=== PATIENT | female | born 1950 | race Caucasian/White ===

== ENCOUNTER 2024-05-22 12:02 | Inpatient (IN) | payer MEDICARE, MEDICAID ==
[2024-05-22 12:27] LABS: BASOPHILS ABSOLUTE AUTO 0.04 K/uL (0.00-0.20); BASOPHILS PERCENT AUTO 0.4 % (0.0-2.0); EOSINOPHILS ABSOLUTE AUTO 0.39 K/uL (0.00-0.50); EOSINOPHILS PERCENT AUTO 3.6 % (0.0-5.0); HEMATOCRIT 35.1 % (34.0-46.0); HEMOGLOBIN 10.3 g/dL (11.7-15.5); IMMATURE GRAN ABSOLUTE AUTO 0.02 10^3/uL (0.00-0.04); IMMATURE GRAN PERCENT AUTO 0.2 % (0.0-0.4); LYMPHOCYTES ABSOLUTE AUTO 1.24 K/uL (0.50-3.50); LYMPHOCYTES PERCENT AUTO 11.6 % (10.0-50.0); MEAN CORPUSCULAR HEMOGLOBIN 32.1 pg (28.2-33.3); MEAN CORPUSCULAR HGB CONC 29.3 g/dL (31.7-36.0); MEAN CORPUSCULAR VOLUME 109.3 fL (84.0-98.0); MONOCYTES ABSOLUTE AUTO 0.46 K/uL (0.00-1.00); MONOCYTES PERCENT AUTO 4.3 % (2.0-14.0); NEUTROPHILS ABSOLUTE AUTO 8.55 K/uL (1.40-7.00); NEUTROPHILS PERCENT AUTO 79.9 % (45.0-80.0); PLATELET COUNT,PLT 137 K/uL (150-350); RED BLOOD CELL COUNT 3.21 M/uL (3.77-5.09); RED CELL DISTRIBUTION WIDTH 19.1 % (11.2-14.1); WHITE BLOOD CELL COUNT,WBC 10.7 K/uL (4.0-10.2)
[2024-05-22 12:56] LABS: BLOOD UREA NITROGEN,BUN 29 mg/dL (7-18); CALCIUM 8.2 mg/dL (8.5-10.1); CARBON DIOXIDE,CO2 32.1 mmol/L (21.0-32.0); CREATININE 1.46 mg/dL (0.51-1.17); GLUCOSE RANDOM 115 mg/dL (70-99); MAGNESIUM 2.5 mg/dL (1.8-2.4); POTASSIUM,K 3.2 mmol/L (3.5-5.1); PRO B-TYPE NATRIUR PEPT,BNPPRO 7454 pg/mL (0-125); TSH ULTRASENSITIVE 1.556 mIU/mL (0.358-3.740)
[2024-05-22 13:00] LABS: ANION GAP 10.1 meq/L (7-15); ESTIMATED GFR 37 mL/min (>=60)
[2024-05-22 13:01] LABS: INR 1.6 (0.9-1.1); PROTHROMBIN TIME 15.6 SEC (9.0-11.1)
[2024-05-22 13:07] LABS: APPEARANCE,URINE SLIGHTLY CLOUDY; BILIRUBIN,URINE SMALL (NEGATIVE); COLOR,URINE DARK YELLOW; GLUCOSE,URINE NEGATIVE (NEGATIVE); KETONES,URINE TRACE mg/dL (NEGATIVE); LEUKOCYTE ESTERASE,URINE LARGE (NEGATIVE); NITRITE,URINE NEGATIVE (NEGATIVE); OCCULT BLOOD,URINE MODERATE (NEGATIVE); PH,URINE 5.5 (5.0-9.0); PROTEIN,URINE 30 mg/dL (NEGATIVE); SODIUM,NA 165 mmol/L (136-145); UROBILINOGEN,URINE 0.2 E.U./dL (0.2-1.0)
[2024-05-22 13:08] LABS: CHLORIDE,CL 126 mmol/L (98-107)
[2024-05-22 13:24] LABS: BACTERIA,URINE FEW /HPF (NONE TO FEW); YEAST,URINE MANY /HPF (NEGATIVE)
[2024-05-22] MEDS: Lactated Ringers 1,000 ML IV SCH (13:27)
[2024-05-22 14:02] LABS: LACTIC ACID 0.6 mmol/L (0.4-2.0)
[2024-05-22 16:14] LABS: SODIUM,NA 165 mmol/L (136-145)
[2024-05-22] MEDS ORDERED: Bisacodyl 5 MG Tab PO PRN (17:55)
[2024-05-22] MEDS ORDERED: DEXTROMETHORPHAN HBR PO PRN (17:55)
[2024-05-22] MEDS ORDERED: guaiFENesin/Dextromethorphan 100-10 MG/5 ML Soln 10 ML Cup PO PRN (18:15)
[2024-05-22] MEDS: Ampicillin/Sulbactam Na 3 GM in Sodium Chloride 0.9% 100 ML IV ONE (18:22)
[2024-05-22] MEDS: Apixaban 5 MG Tab PO ONE (18:24)
[2024-05-22] MEDS: Acetaminophen 650 MG Tab.ER PO SCH (18:28)
[2024-05-22] MEDS: Gabapentin 100 MG Cap PO SCH (18:29)
[2024-05-22] MEDS: AMINO ACIDS PO SCH (18:29)
[2024-05-22] MEDS: PROTEIN HYDROLYS PO SCH (18:29)
[2024-05-22] MEDS: Sennosides/Docusate Sodium 50-8.6 MG Tab PO SCH (18:33)
[2024-05-22] MEDS: Orphenadrine 100 MG Tab.ER PO SCH (18:33)
[2024-05-22 19:17] LABS: BLOOD UREA NITROGEN,BUN 28 mg/dL (7-18); CALCIUM 8.3 mg/dL (8.5-10.1); CARBON DIOXIDE,CO2 31.5 mmol/L (21.0-32.0); CREATININE 1.42 mg/dL (0.51-1.17); GLUCOSE RANDOM 111 mg/dL (70-99); POTASSIUM,K 3.5 mmol/L (3.5-5.1); PRO B-TYPE NATRIUR PEPT,BNPPRO 6342 pg/mL (0-125)
[2024-05-22 19:19] LABS: CHLORIDE,CL 124 mmol/L (98-107); ESTIMATED GFR 39 mL/min (>=60); SODIUM,NA 163 mmol/L (136-145)
[2024-05-22] MEDS: Melatonin 3 MG Tab PO SCH (19:49)
[2024-05-22] MEDS: atorvaSTATin 40 MG Tab PO SCH (19:49)
[2024-05-22] MEDS: amLODIPine 5 MG Tab PO SCH (19:50)
[2024-05-22] MEDS: Non-Formulary Medication 1 Each (Oxycodone Hcl [Oxycodone Hcl] 5 MG Capsule) PO SCH (20:10)
[2024-05-22] MEDS: LORazepam 2 MG/ML SDV IVPUSH ONE (22:15)
[2024-05-22 22:16] LABS: BLOOD UREA NITROGEN,BUN 27 mg/dL (7-18); CALCIUM 7.9 mg/dL (8.5-10.1); CARBON DIOXIDE,CO2 31.4 mmol/L (21.0-32.0); CREATININE 1.42 mg/dL (0.51-1.17); GLUCOSE RANDOM 112 mg/dL (70-99); POTASSIUM,K 3.3 mmol/L (3.5-5.1)
[2024-05-22 22:21] LABS: ANION GAP 8.9 meq/L (7-15); CHLORIDE,CL 123 mmol/L (98-107); ESTIMATED GFR 39 mL/min (>=60); SODIUM,NA 160 mmol/L (136-145)
[2024-05-22] MEDS: Potassium Chloride Riders 10 MEQ in Premix Bag 1 BAG IV ONE (23:12)
[2024-05-23] MEDS: Lactated Ringers 1,000 ML IV SCH ×2 (00:41→09:10)
[2024-05-23 00:53] LABS: BLOOD UREA NITROGEN,BUN 27 mg/dL (7-18); CALCIUM 7.8 mg/dL (8.5-10.1); CARBON DIOXIDE,CO2 32.3 mmol/L (21.0-32.0); CREATININE 1.41 mg/dL (0.51-1.17); GLUCOSE RANDOM 113 mg/dL (70-99); POTASSIUM,K 3.5 mmol/L (3.5-5.1)
[2024-05-23 01:16] LABS: ANION GAP 9.2 meq/L (7-15); CHLORIDE,CL 124 mmol/L (98-107); ESTIMATED GFR 39 mL/min (>=60); SODIUM,NA 162 mmol/L (136-145)
[2024-05-23] MEDS: Ampicillin/Sulbactam 3 GM Vial IV SCH (02:09)
[2024-05-23 03:47] LABS: BLOOD UREA NITROGEN,BUN 27 mg/dL (7-18); CALCIUM 7.7 mg/dL (8.5-10.1); CARBON DIOXIDE,CO2 32.2 mmol/L (21.0-32.0); CREATININE 1.32 mg/dL (0.51-1.17); GLUCOSE RANDOM 104 mg/dL (70-99); POTASSIUM,K 3.2 mmol/L (3.5-5.1)
[2024-05-23 03:48] LABS: CHLORIDE,CL 122 mmol/L (98-107); ESTIMATED GFR 42 mL/min (>=60); SODIUM,NA 159 mmol/L (136-145)
[2024-05-23] MEDS: Potassium Chloride Riders 10 MEQ in Premix Bag 1 BAG IV ONE (04:27)
[2024-05-23 07:41] LABS: BASOPHILS ABSOLUTE AUTO 0.04 K/uL (0.00-0.20); BASOPHILS PERCENT AUTO 0.3 % (0.0-2.0); EOSINOPHILS ABSOLUTE AUTO 0.23 K/uL (0.00-0.50); EOSINOPHILS PERCENT AUTO 1.8 % (0.0-5.0); HEMATOCRIT 32.5 % (34.0-46.0); HEMOGLOBIN 9.6 g/dL (11.7-15.5); IMMATURE GRAN ABSOLUTE AUTO 0.02 10^3/uL (0.00-0.04); IMMATURE GRAN PERCENT AUTO 0.2 % (0.0-0.4); LYMPHOCYTES ABSOLUTE AUTO 1.07 K/uL (0.50-3.50); LYMPHOCYTES PERCENT AUTO 8.5 % (10.0-50.0); MEAN CORPUSCULAR HEMOGLOBIN 32.2 pg (28.2-33.3); MEAN CORPUSCULAR HGB CONC 29.5 g/dL (31.7-36.0); MEAN CORPUSCULAR VOLUME 109.1 fL (84.0-98.0); MONOCYTES ABSOLUTE AUTO 0.68 K/uL (0.00-1.00); MONOCYTES PERCENT AUTO 5.4 % (2.0-14.0); NEUTROPHILS PERCENT AUTO 83.8 % (45.0-80.0); PLATELET COUNT,PLT 129 K/uL (150-350); RED BLOOD CELL COUNT 2.98 M/uL (3.77-5.09); RED CELL DISTRIBUTION WIDTH 19.1 % (11.2-14.1); WHITE BLOOD CELL COUNT,WBC 12.6 K/uL (4.0-10.2)
[2024-05-23] MEDS ORDERED: PROTEIN HYDROLYS PO SCH (08:00)
[2024-05-23] MEDS ORDERED: AMINO ACIDS PO SCH (08:00)
[2024-05-23 08:13] LABS: BLOOD UREA NITROGEN,BUN 26 mg/dL (7-18); CALCIUM 7.9 mg/dL (8.5-10.1); CARBON DIOXIDE,CO2 33.8 mmol/L (21.0-32.0); CREATININE 1.38 mg/dL (0.51-1.17); GLUCOSE RANDOM 93 mg/dL (70-99); POTASSIUM,K 3.6 mmol/L (3.5-5.1); PRO B-TYPE NATRIUR PEPT,BNPPRO 7101 pg/mL (0-125)
[2024-05-23 08:15] LABS: ANION GAP 7.8 meq/L (7-15); CHLORIDE,CL 124 mmol/L (98-107); ESTIMATED GFR 40 mL/min (>=60); SODIUM,NA 162 mmol/L (136-145)
[2024-05-23] MEDS ORDERED: Cholecalciferol (Vitamin D3) 25 MCG Tab PO SCH (10:00)
[2024-05-23] MEDS ORDERED: Sertraline 50 MG Tab PO SCH (10:00)
[2024-05-23] MEDS ORDERED: Metoprolol Succinate 50 MG Tab.ER PO SCH (10:00)
[2024-05-23] MEDS ORDERED: Apixaban 5 MG Tab PO SCH (10:00)
[2024-05-23] MEDS ORDERED: Multivitamin Tab PO SCH (10:00)
[2024-05-23] MEDS ORDERED: Isosorbide Mononitrate 30 MG Tab.ER PO SCH (10:00)
[2024-05-23] MEDS ORDERED: Famotidine 20 MG Tab PO SCH (10:00)
[2024-05-23] MEDS ORDERED: Sertraline 25 MG Tab PO SCH (10:00)
[2024-05-23] MEDS: Amiodarone 200 MG Tab PO SCH (11:26)
[2024-05-23] MEDS ORDERED: Dextrose 5%-0.45% NaCl 1,000 ML IV SCH (11:45)
[2024-05-23] MEDS ORDERED: Nirmatrelvir/Ritonavir 300 MG/100 MG Dosepak PO SCH (11:45)
[2024-05-23] MEDS ORDERED: [UNRECOGNIZED DRUG - OTHER] PO SCH ×2 (12:00)
[2024-05-23] MEDS ORDERED: VIT B COMP PO SCH ×2 (12:00)
[2024-05-23] MEDS ORDERED: VITE PO SCH ×2 (12:00)
[2024-05-23] MEDS: D5 1/2 NS w/ 20 mEq/L KCl 1,000 ML IV SCH (12:16)
[2024-05-23] MEDS: Enoxaparin 40 MG/0.4 ML Syringe SUBCUT SCH (14:54)
[2024-05-23] MEDS: oxyCODONE 5 MG Tab PO SCH ×2 (14:56→15:35)
[2024-05-23] MEDS: Magnesium Oxide 400 MG Tab PO SCH (15:35)
[2024-05-23] MEDS: Cetirizine 10 MG Tab PO SCH (15:36)
[2024-05-23] MEDS: Furosemide 40 MG/4 ML VIAL IVPUSH ONE (21:10)
[2024-05-24] MEDS: Ampicillin/Sulbactam Na 3 GM in Sodium Chloride 0.9% 100 ML IV SCH (02:02)
[2024-05-24 07:33] LABS: BASOPHILS ABSOLUTE AUTO 0.03 K/uL (0.00-0.20); BASOPHILS PERCENT AUTO 0.3 % (0.0-2.0); EOSINOPHILS ABSOLUTE AUTO 0.43 K/uL (0.00-0.50); EOSINOPHILS PERCENT AUTO 4.9 % (0.0-5.0); HEMATOCRIT 29.1 % (34.0-46.0); HEMOGLOBIN 8.7 g/dL (11.7-15.5); IMMATURE GRAN ABSOLUTE AUTO 0.04 10^3/uL (0.00-0.04); IMMATURE GRAN PERCENT AUTO 0.5 % (0.0-0.4); LYMPHOCYTES ABSOLUTE AUTO 1.03 K/uL (0.50-3.50); LYMPHOCYTES PERCENT AUTO 11.7 % (10.0-50.0); MEAN CORPUSCULAR HEMOGLOBIN 32.3 pg (28.2-33.3); MEAN CORPUSCULAR HGB CONC 29.9 g/dL (31.7-36.0); MEAN CORPUSCULAR VOLUME 108.2 fL (84.0-98.0); MONOCYTES PERCENT AUTO 5.7 % (2.0-14.0); NEUTROPHILS PERCENT AUTO 76.9 % (45.0-80.0); PLATELET COUNT,PLT 125 K/uL (150-350); RED BLOOD CELL COUNT 2.69 M/uL (3.77-5.09); RED CELL DISTRIBUTION WIDTH 19.1 % (11.2-14.1); WHITE BLOOD CELL COUNT,WBC 8.8 K/uL (4.0-10.2)
[2024-05-24 07:47] LABS: CALCIUM 7.7 mg/dL (8.5-10.1); CREATININE 1.49 mg/dL (0.51-1.17); EST CRCL DRUG DOSING (CG) 29.35 mL/min; POTASSIUM,K 3.1 mmol/L (3.5-5.1)
[2024-05-24 08:13] LABS: ANION GAP 8.1 meq/L (7-15)
[2024-05-24] MEDS: Loperamide 2 MG Tab PO ONE (09:48)
[2024-05-24] MEDS: Sodium Chloride 0.9% 10 ML Syringe FLUSH PRN (13:53)
[2024-05-24] MEDS: Potassium Chloride 10 MEQ Tab.ER PO ONE (18:39)
[2024-05-24] MEDS ORDERED: Loperamide 2 MG Tab PO PRN (21:03)
== END 2024-05-25 12:30 | DRG 640 ==
LOC: LL.ED 12:02 → SUPCPDRO 12:02 → UNDOADMIN 17:05 → LL.MS 17:05 → UNDODISIN 05-25 12:30
PROVIDERS: ADMIT Physician Assistant; ATTEND Physician Assistant
DX: J96.00 Acute respiratory failure, unspecified whether with hypoxia or hypercapnia (principal); E87.0 Hyperosmolality and hypernatremia; J96.01 Acute respiratory failure with hypoxia; L89.154 Pressure ulcer of sacral region, stage 4; I50.9 Heart failure, unspecified; N18.30 Chronic kidney disease, stage 3 unspecified; Z66 Do not resuscitate; R79.89 Other specified abnormal findings of blood chemistry; D63.1 Anemia in chronic kidney disease; R13.10 Dysphagia, unspecified; E87.6 Hypokalemia; E83.42 Hypomagnesemia; E83.51 Hypocalcemia; Z79.1 Long term (current) use of non-steroidal anti-inflammatories (NSAID); Z79.899 Other long term (current) drug therapy; Z79.01 Long term (current) use of anticoagulants; Z79.02 Long term (current) use of antithrombotics/antiplatelets
CPT/HCPCS: 36415; 70450; 71045; 80048; 81001; 82947; 83605; 83735; 83880; 84295; 84443; 84484; 85025; 85610; 85730; 87086; 87428-QW; 93005; 96361; 96365; 99285-25; A9270-GY; J0295; J1642; J1650; J1940; J3480; J7120